=== PATIENT | male | born 1995 | race Caucasian/White ===

== ENCOUNTER 2022-02-13 14:27 | Emergency (ER) | payer OTHER ==
[~2022-02-13] VITALS: Ht 175.3 cm; Wt 112.0 kg
[2022-02-13] MEDS ORDERED: LIDOCAINE 1% 10 ML VIAL ID ONE (15:30)
[2022-02-13] MEDS ORDERED: CEPH500C3 PO (16:02)
[2022-02-13 16:05] VITALS: BP 128/60
== END 2022-02-13 16:41 | disposition home or self-care (01) ==
LOC: EMS 14:30
DX: S61.012A Laceration without foreign body of left thumb without damage to nail, initial encounter (principal); F12.90 Cannabis use, unspecified, uncomplicated; W45.8XXA Other foreign body or object entering through skin, initial encounter; Y93.89 Activity, other specified; Y92.098 Other place in other non-institutional residence as the place of occurrence of the external cause; Y99.8 Other external cause status
CPT/HCPCS: 12002; 99282; J3490